=== PATIENT | female | born 2005 | race Two or more races ===

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

== ENCOUNTER 2024-11-22 14:49 | Emergency (ER) | payer MEDICAID ==
[~2024-11-22] VITALS: Ht 170.2 cm; Wt 71.0 kg
[2024-11-22 15:42] VITALS: BP 107/76; PULSE 73; RESP 20; O2SAT 99
== END 2024-11-22 16:31 | disposition left against medical advice (07) ==
LOC: ER 14:49
DX: R51.9 Headache, unspecified (principal); Z53.21 Procedure and treatment not carried out due to patient leaving prior to being seen by health care provider